=== PATIENT | male | born 1970 | race Caucasian/White ===

== ENCOUNTER 2021-03-19 09:33 | Outpatient (CLI) | payer MEDICARE, SELFPAY ==
[2021-03-19 09:55] VITALS: BMI 31.3
[2021-03-19 10:00] VITALS: BP 131/84; PULSE 78; RESP 20; TEMP 36.4; O2SAT 93
[2021-03-19 10:23] VITALS: BP 128/86; PULSE 81; RESP 18; O2SAT 95
[2021-03-19 11:15] VITALS: BP 126/77; PULSE 76; RESP 16; TEMP 36.5; O2SAT 93
== END 2021-03-19 11:25 | disposition home or self-care (01) ==
LOC: OPS 09:38
PROVIDERS: PCP Family Medicine; Visit Provider Nurse Practitioner Family
DX: U07.1 COVID-19 (principal)
CPT/HCPCS: 96365

== ENCOUNTER 2021-11-11 06:00 | Outpatient (RCR) | payer MEDICARE, SELFPAY | END 2021-12-01 23:59 | disposition home or self-care (01) | LOC: GPT 06:00 | PROVIDERS: PCP Family Medicine; Referring Provider Orthopaedic Surgery; Visit Provider Orthopaedic Surgery | DX: M25.561 Pain in right knee (principal) | CPT/HCPCS: 97110; 97112; 97140; 97162; G0283 ==

== ENCOUNTER 2021-12-02 06:00 | Outpatient (RCR) | payer MEDICARE, SELFPAY | END 2021-12-31 23:59 | disposition home or self-care (01) | LOC: GPT 06:00 | PROVIDERS: PCP Family Medicine; Referring Provider Orthopaedic Surgery; Visit Provider Orthopaedic Surgery | DX: M25.561 Pain in right knee (principal) | CPT/HCPCS: 97110; 97112; 97140; 97530 ==

== ENCOUNTER 2022-01-01 06:00 | Outpatient (RCR) | payer MEDICARE, SELFPAY | END 2022-01-31 23:59 | disposition home or self-care (01) | LOC: GPT 06:00 | PROVIDERS: PCP Family Medicine; Referring Provider Orthopaedic Surgery; Visit Provider Orthopaedic Surgery | DX: M25.561 Pain in right knee (principal) | CPT/HCPCS: 97110; 97140; 97530 ==

== ENCOUNTER 2022-02-01 06:00 | Outpatient (RCR) | payer MEDICARE, SELFPAY | END 2022-03-03 23:59 | disposition home or self-care (01) | LOC: GPT 06:00 | PROVIDERS: PCP Family Medicine; Referring Provider Orthopaedic Surgery; Visit Provider Orthopaedic Surgery | DX: M25.561 Pain in right knee (principal) | CPT/HCPCS: 97110; 97140; 97530 ==

== ENCOUNTER 2023-01-11 15:52 | Emergency (ER) | payer MEDICARE, SELFPAY ==
[2023-01-11 15:58] VITALS: BP 146/81; PULSE 85; RESP 16; TEMP 36.8; O2SAT 97; BMI 33.6
[2023-01-11 16:09] VITALS: BP 125/86; PULSE 84; RESP 16; O2SAT 98
--- NOTE | 2023-01-11 16:11 | ED_ITS ---
HPI - General Adult General: Chief complaint: General Medical Stated complaint: Left Ear Pain and pressure Time Seen by Provider: 01/11/23 16:05 Source: patient and family Mode of arrival: ambulatory Limitations: no limitations History of Present Illness: Patient is a 52-year-old male who presents to ED today with a few separate complaints. First of all he states he is having left ear pain and has so over the past 2 days. He states pain is constant. He has not noticed any drainage from the ear. Denies hearing loss or tinnitus. He is not having any dizziness. No headache. Patient states he has also had some chills and a few episodes of vomiting. No fevers. He is not complaining of abdominal pain. Significant other states starting back in August he has had several right knee surgeries and complications in regards to infection/sepsis. They apparently were seen at [facility] and told to come to the ED so that we could check his white count . Denies redness/warmth to knee joint. He also has a complaint of a rash to his right groin crease. Onset (ago): day(s) Location: face (ear) Severity: moderate Pain Consistency: constant Relieving factors: none Exacerbating factors: none Associated symptoms: Reports nausea and vomiting; Deny chest pain, confusion, dyspnea, headache(s) or rash Treatments prior to arrival: none Review of Systems Const: Reports: chills; Denies: fever(s) or body aches Eyes: Denies: change in vision, blurry vision, photophobia, floaters or seeing flashes ENMT: Reports: ear or mastoid pain; Denies: throat pain, odynophagia, ear discharge, change in hearing, tinnitus, disequilibrium, nasal discharge, nasal congestion or sinus pain Card: Denies: chest pain Resp: Denies: dyspnea GI: Reports: nausea and vomiting; Denies: abdominal pain, diarrhea or change in bowel habits : Denies: flank pain, difficulty urinating, dysuria, urinary frequency or urinary urgency Musc: Denies: neck pain, back pain, extremity pain, extremity swelling, joint pain or joint swelling Skin/Breast: Denies: rash Neuro: Denies: headache(s), numbness in extremities, weakness in extremities, sensory changes, dizziness or confusion [facility] ED PFSH: Medical History (Updated 01/11/23 @ 17:05 by ZEKE Soto) History of MRSA infection Surgical History History of knee joint replacement Social History Alcohol intake: current Alcohol intake frequency: holidays/special occasions only Physical Exam Const: COMMON NORMALS: no acute distress, average body habitus, patient or iented x3, no limitations, healthy appearing, alert and well nourished GENERAL APPEARANCE: cooperative ORIENTATION/CONSCIOUSNESS: Yes awake, Yes o riented to person, Yes oriented to place and Yes oriented to time HENMT: COMMON NORMALS: normocephalic, atraumatic, external ears normal, TM's normal bilaterally and Normal external nose present HEAD & SCALP: normal to inspection, normocephalic and atraumatic FACE & SINUS: normal facial exam NOSE: Normal external nose present EXTERNAL EAR: Yes external ears normal and Yes mastoids normal EXTERNAL AUDITORY CANAL: Abnormal EAC present EAC laterality: left (edema/discharge consistent with otitis externa ) TYMPANIC MEMBRANE: TM's normal bilaterally MOUTH: Normal oral and palatal mucosa present, lip normal and tongue normal TEETH & GINGIVA: Yes fair dentition THROAT: posterior oropharynx normal, tonsils normal and uvula midline Eye: GENERAL EYE: appearance normal, both eyes and all related structures Neck/C-Spine: COMMON NORMALS: full ROM, no lymphadenopathy, supple and no meningeal signs Resp: COMMON NORMALS: normal respiratory effort and clear to auscultation bilaterally AUSCULTATION: clear to auscultation bilaterally Cardio: COMMON NORMALS: regular rate and regular rhythm RATE: regular rate RHYTHM: regular rhythm GI: COMMON NORMALS: Normal to inspection, nondistended, normoactive bowel sounds present, Soft to palpation, non-tender, No hepatosplenomegaly present and no masses PALPATION: Yes Soft to palpation and Yes No hepatosplenomegaly present : COMMON NORMALS: Yes no CVA tenderness BLADDER/KIDNEY EXAM: Yes no CVA tenderness Back/Pelvis: COMMON NORMALS: no CVA tenderness, thoracic and lumbar spine normal to inspection, no thoracic nor lumbar tenderness and thoraco-lumbar ROM normal Extremity: COMMON NORMALS: normal to inspection GENERAL: Yes normal exam except as noted Neuro: MAGED COMA SCALE: document GCS findings [place] coma scale eye opening: Spontaneous [place] coma scale verbal response: Orientated Maged coma scale motor response: Obey commands [place] coma scale total score: 15 COMMON NORMALS: patient oriented x3, moves all extremities, no focal motor deficits and no sensory deficits noted SENSORIUM/ORIENTATION: Yes alert, Yes oriented to person, Yes oriented to place and Yes oriented to time MENINGEAL SIGNS: Yes no meningeal signs Skin: NARRATIVE SKIN EXAM: mild intertrigo ang right groin RASHES: rashes noted Course Vital Signs: Vital signs: Vital Signs Temperature 98.2 F 01/11/23 17:13 Pulse Rate 84 01/11/23 17:13 Respiratory Rate 16 01/11/23 17:13 Blood Pressure 125/86 01/11/23 17:13 Pulse Oximetry 98 01/11/23 17:13 Oxygen Delivery Me thod Room Air 01/11/23 15:58 MDM - General Adult Medical Decision Making Vitals/labs non-concerning. He has a left otitis externa clinically and will be given otic abx drops for this. Will place on nystatin powder for ang to groin. Recommend follow up with PCP in a week or so if symptoms are not improving. Lab Data 01/11/23 16:36 01/11/23 16:36 Laboratory Results WBC 12.9 10^3/uL (4.0-10.0) H 01/11/23 16:36 RBC 4.58 10^6/uL (4.1-5.3) 01/11/23 16:36 Hgb 13.2 g/dL (11.7-16.6) 01/11/23 16:36 Hct 41.4 % (42.0-52.0) L 01/11/23 16:36 MCV 90.4 fl (80-94) 01/11/23 16:36 MCH 28.8 pg (28.0-34.0) 01/11/23 16:36 MCHC 31.9 g/dL (30.0-36.0) 01/11/23 16:36 RDW 15.2 % (12.1-15.1) H 01/11/23 16:36 Plt Count 143 10^3/cmm (130-400) 01/11/23 16:36 MPV 12.1 fL (7.4-10.4) H 01/11/23 16:36 Neut % (Auto) 72.4 % 01/11/23 16:36 Lymph % (Auto) 20.0 % 01/11/23 16:36 Cache % (Auto) 6.9 % 01/11/23 16:36 Eos % (Auto) 0.1 % 01/11/23 16:36 Baso % (Auto) 0.2 % 01/11/23 16:36 Neut # (Auto) 9.37 10^3/uL (1.8-7.7) H 01/11/23 16:36 Lymph # (Auto) 2.6 10^3/uL (0.8-4.8) 01/11/23 16:36 Cache # (Auto) 0.9 10^3/uL (0.2-0.9) 01/11/23 16:36 Eos # (Auto) 0.0 10^3/uL (0.0-0.8) 01/11/23 16:36 Baso # (Auto) 0.0 10^3/uL (0.0-0.1) 01/11/23 16:36 Nucleated RBC % (auto) 0 % 01/11/23 16:36 Nucleated RBCs # 0.0 /100WBC 01/11/23 16:36 Sodium 134 mmol/L (136-145) L 01/11/23 16:36 Potassium 3.9 mmol/L (3.5-5.1) 01/11/23 16:36 Chloride 101 mmol/L (98-107) 01/11/23 16:36 Carbon Dioxide 22 mmol/L (22-29) 01/11/23 16:36 Anion Gap 14.9 (5-19) 01/11/23 16:36 BUN 14 mg/dL (6-20) 01/11/23 16:36 Creatinine 0.9 mg/dL (0.7-1.2) 01/11/23 16:36 GFR Calculation 88.6 mL/min (90-130) L 01/11/23 16:36 Glucose 117 mg/dL (65-115) H 01/11/23 16:36 Calculated Osmolality 280 mOsm/kg (285-295) L 01/11/23 16:36 Calcium 8.8 mg/dL (8.5-10.5) 01/11/23 16:36 Total Bilirubin 0.6 mg/dL (0.15-1.2) 01/11/23 16:36 AST 10 U/L (0-40) 01/11/23 16:36 ALT 10 U/L (0-41) 01/11/23 16:36 Alkaline Phosphatase 79 U/L (40-130) 01/11/23 16:36 Total Protein 6.6 g/dL (6.6-8.7) 01/11/23 16:36 Albumin 4.0 g/dL (3.5-5.2) 01/11/23 16:36 Globulin 2.6 g/dL (1.3-4.6) 01/11/23 16:36 Discharge Plan Discharge Patient Disposition: Home Clinical Impression: Intertriginous candidiasis Left otitis externa Qualifiers: Otitis externa type: unspecified type Chronicity: acute Qualified Code(s): H60.502 - Unspecified acute noninfective otitis externa, left ear Condition: Stable Prescriptions: New Ciprodex 0.3-0.1 % drops,suspension 4 drp otic (ear) BID 7 Days Qty: 7.5 0RF nystatin 100,000 unit/gram powder 1 applic topical BID Qty: 30 0RF No Action fluoxetine [Prozac] 40 mg capsule 40 mg PO BID Qty: 60 11RF ascorbate calcium (vitamin C) 500 mg tablet 500 mg PO DAILY cholecalciferol (vitamin D3) PO Mucinex DM 30-600 mg tablet extended release 12 hr 1 tab PO BID PRN zinc 50 mg tablet 50 mg PO DAILY dexamethasone 6 mg tablet 6 mg PO DAILY 10 Days Qty: 10 0RF levofloxacin 750 mg tablet 750 mg PO DAILY 5 Days Qty: 5 0RF (DME) oxygen Via [place] 24 hours prn 2-4 L See Rx Instructions .Route .MEDSUPPLY Qty: 1 0RF Rx Instructions: As directed Rest O2 90% on RA Walk O2 sat on RA 88% at home per Patient Discharge Orders: Discharge ED (Routine); Ordered 01/11/23 Ordered By: Gladys Shaw Referrals: Jarek Herring FNP [Primary Care Provider] - Patient Instructions: Otitis Externa - Adult Coding Level of Care Code ED [employer] for [employer] [place]
[2023-01-11 16:41] LABS: Basophils % 0.2 %; Eosinophils % 0.1 %; Hematocrit 41.4 % (42.0-52.0); Hemoglobin 13.2 g/dL (11.7-16.6); Lymphocytes # 2.6 10^3/uL (0.8-4.8); Mean Corpuscular HGB Conc 31.9 g/dL (30.0-36.0); Mean Corpuscular Hemoglobin 28.8 pg (28.0-34.0); Mean Corpuscular Volume 90.4 fl (80-94); Mean Platelet Volume 12.1 fL (7.4-10.4); Monocytes # 0.9 10^3/uL (0.2-0.9); Monocytes % 6.9 %; Neutrophils # 9.37 10^3/uL (1.8-7.7); Neutrophils % 72.4 %; Nucleated Red Blood Cells % 0 %; Platelet Count 143 10^3/cmm (130-400); Red Blood Count 4.58 10^6/uL (4.1-5.3); Red Cell Distribution Width 15.2 % (12.1-15.1); White Blood Count 12.9 10^3/uL (4.0-10.0)
[2023-01-11 17:00] LABS: Alanine Aminotransferase 10 U/L (0-41); Alkaline Phosphatase 79 U/L (40-130); Anion Gap 14.9 (5-19); Aspartate Amino Transferase 10 U/L (0-40); Blood Urea Nitrogen 14 mg/dL (6-20); Calcium 8.8 mg/dL (8.5-10.5); Carbon Dioxide 22 mmol/L (22-29); Chloride 101 mmol/L (98-107); Globulin 2.6 g/dL (1.3-4.6); Glomerular Filtration Rate 88.6 mL/min (90-130); Glucose 117 mg/dL (65-115); Osmolality Calculated 280 mOsm/kg (285-295); Potassium 3.9 mmol/L (3.5-5.1); Sodium 134 mmol/L (136-145); Total Bilirubin 0.6 mg/dL (0.15-1.2); Total Protein 6.6 g/dL (6.6-8.7)
[2023-01-11 17:13] VITALS: BP 125/86; PULSE 84; RESP 16; TEMP 36.8; O2SAT 98
== END 2023-01-11 17:14 | disposition home or self-care (01) ==
PROVIDERS: Emergency Provider Physician Assistant; PCP Nurse Practitioner
DX: H60.502 Unspecified acute noninfective otitis externa, left ear (principal); B37.2 Candidiasis of skin and nail; R11.2 Nausea with vomiting, unspecified; Z79.899 Other long term (current) drug therapy; Z86.14 Personal history of Methicillin resistant Staphylococcus aureus infection
CPT/HCPCS: 36415; 80053; 85025; 99283